=== PATIENT | female | born 1950 | race Caucasian/White ===

== ENCOUNTER 2017-05-14 07:26 | Day surgery (SDC) | payer MEDICARE, OTHER ==
[~2017-05-14] VITALS: Ht 162.6 cm; Wt 67.9 kg
[2017-05-14] MEDS: Lactated Ringer's 1,000 ML IV SCH ×2 (05:38→09:05)
[~2017-05-14 07:26] MED LIST: CHOL200025 PO; CeFAZolin Inj 2 GM in IV Premix 1 EACH IV ONE; FOLI1TAB50 PO; RES15 PO; ZINC50TA56 PO; [UNRECOGNIZED DRUG - CODE] IM; calcium
[2017-05-14] MEDS ORDERED: Propofol 10,000 mCg/mL 20 mL Inj ONE (07:27)
[2017-05-14] MEDS ORDERED: Ketamine 10 mg/mL 20 mL Inj ONE (07:27)
[2017-05-14] MEDS ORDERED: Ondansetron 2 mg/mL 2 mL Inj ONE (07:27)
[2017-05-14] MEDS ORDERED: Lactated Ringer's 500 ML IV PRN (07:36)
[2017-05-14] MEDS ORDERED: Lactated Ringer's 1,000 ML IV SCH (07:36)
--- NOTE | 2017-05-14 07:36 | PCM.HPANE ---
Patient Data Surgeon Admitting Provider: Attending Provider:Timothy Peralta MD Primary Care Physician:Rosa M Herrera MD Other Provider:Bina Moyaingham Anesthesia Reason for Visit Left Breast Dcis Ht/WT & BMI Body Mass Index Allergies Coded Allergies: oxycodone HCl (Verified Adverse Reaction, Severe, ANXIETY, 05/02/17) ANTSY COULDNT SIT STILL, NAUSEA Past Anesthesia History Anesthesia History: Denies:: Abnormal Airway, Anesthesia Reactions, Difficult Intubation, Fam Anesthesia Reaction, Malignant Hyperthermia Diabetes History Hx Diabetes?: No MRSA MRSA: No Medications Hypertension Medication: No Home Meds Incl Beta Fidel: No Reported Medications Zinc Amino Acid Chelate (Zinc)50 Mg [id number] Mg PO 05/10/17 Mv,Ca,Min/Iron Fum/FA/Vit K (Multi For Her Tablet)1 Each Tablet1 Each PO DAILY 05/10/17 Temazepam 15 Mg [id number] Mg PO HS PRN For Insomnia 30 Days Ref 0 05/10/17 Cholecalciferol (Vitamin D3) (Vitamin D3)2,000 Unit Tablet2,000 Unit PO DAILY 05/10/17 [calcium] No Conflict [id number] Mg DAILY 05/10/17 Botulinum Toxin Type A (Botox)100 Unit Vial70 Unit IM q3mos cervical dystonia injection scheduled 05/13/17 05/10/17 Discontinued Reported Medications Botulinum Toxin Type A (Botox)100 Unit Vial70 Unit IM Q 3 MONTHS FOR CERVICAL DYSTONIA 05/02/17 Cholecalciferol-Expunged Drug, Do Not Renew! (Vitamin D3-Expunged Drug, Do Not Renew!)10,000 Unit Capsule2,000 Unit PO DAILY 04/21/13 Calc/D3/Mag/Zn/Nutritional Services Cook/Shahid/Macon (Calcium 600/Vit D3-Expunged, Do Not Renew!)1 Each Tablet2 Each PO DAILY PLUS IN MUTI VITAMIN TOTAL 1500 D 04/21/13 MULTIVITAMIN-Expunged Drug, Do Not Renew! (MULTI VITAMIN -Expunged Drug, Do Not Renew!)1 Each Tablet1 Each PO DAILY 04/21/13 Levothyroxine-Expunged Drug, Do Not Renew! (Synthroid-Expunged Drug, Do Not Renew!)25 Mcg Tablet0.025 Mg PO DAILYAC #30 TAB 0.025 MG = 25 MCG 04/12/13 History History of ENT Problems?: No HEENT History: Denies:: Abnormal Airway Cataracts Difficult Intubation Dysphagia Glaucoma Hearing Problem Sinus Problem TMJ (possible ? no nightguard ) Denture Type: None Teeth Condition: Within Normal Limits Hx of Heart Problems?: No Cardiovascular History: Denies:: AICD Abdominal Aortic Aneurism Atrial Fibrillation Cardiac Surgery Chest Pain Congestive Heart Failure Heart Murmur Hypertension Irregular Heartbeat Pacemaker Peripheral Vascular Rheumatic Fever Thrombophlebitis Hx of Respiratory Problem?: Yes Respiratory History: Positive for:: Tuberculosis (poss 38 yrs ago, treated for 6 mos) Denies:: Asthma COPD Dyspnea Emphysema Hemoptysis Oxygen Administration Pneumonia Use of C-PAP Machine Use of Inhalers / NEBS Hx Neurologic Problems?: Yes Neurological History: Denies:: Alzheimer's Disease CVA Dementia Dizziness Headaches Multiple Sclerosis Parkinson's Disease (cervical dystonia- receives botox- inj scheduled 05/13/17) Peripheral Neuropathy Seizures TIA Hx of GI Problems?: No Hx of Problems?: No Genitourinary History: Denies:: HX of Hemodialysis Kidney Stones Urinary Tract Infection Female Hx: Denies:: Currently (post menopausal) Endometriosis Pelvic Inflammatory Skin History: Denies:: History Skin Disorders? Pressure Ulcers Hx Musculoskeletal Problems?: Yes Musculoskeletal History: Positive for:: Back Injury (L2-3 lami 2016) Denies:: Fibromyalgia Joint Replacement Musculoskeletal Trauma Myasthenia Gravis Systemic Lupus Hx of Psycho/Social Problems?: No Psycho Social History: Denies:: Anxiety Bipolar Disorder Hx Depression Hx Surgeries?: Yes (L2-3 lami) Hx Any Other Health Problems?: Yes Other History: Positive for:: Cancer (breast ) Thyroid Disease (on meds) Denies:: Endocrine Disease History Blood Transfusions: Positive for:: Accept Blood Products? Denies:: Blood Transfuse Reaction Blood Transfusions Hx Diabetes: No Hx Alcohol Use: YesAlcoholic Drinks Per Day: one drink every few monthsHx Substance Use: No Smoking Status: Former Smoker Have You Smoked inLast 12 mo: No Stop/Bang Treated for Sleep Apnea?: No Do You Have a CPAP Machine?: No Risk Assessment Category Category 1A: Patient has history of documented sleep apnea, and HAS NOT received any narcotic, sedative or anesthesia administration during this stay. Category 1B: Patient has history of documented sleep apnea, and HAS received any narcotic , sedative or anesthesia administration during this stay Category 2: Patient has SUSPECTED Obstructive Sleep Apnea, and HAS received any narcotic , sedative or anesthesia administration during this stay. Category 3: Patient has SUSPECTED Obstructive Sleep Apnea and HAS NOT received narcotic, sedative or anesthesia administration during this stay. Category 4: Outpatient in Procedural Areas with known sleep apnea or who screen positive for High Risk via the STOP/BANG questionnaire. Exam Exam General Appearance: Alert, Oriented X3, Cooperative, No Acute Distress HEENT/AIRWAY: MP 2 Lungs: Clear to Auscultation, Normal Air Movement Heart: Exam Unremarkable, Regular Rate/Rhythm, No Murmurs/Rubs/Gallops Meds/Labs/Diagnostics Admission Meds Current Medications Lactated Ringer's (Lr) 1,000 ml @ 120 mls/hr Q8H20M IV Last administered on t 05:38; Start 05/14/17 at 05:00; Stop 05/14/17 at 13:19 Plan Impression Patient chart reviewed, patient interviewed and anesthestic plan with risks, benefits, and alternatives discussed, and informed consent obtained. NPO per Anesth. Guidelines: Yes ASA Physical Status: ASA2 Mod Systemic Disease Anesthetic Plan: MAC Bene/Risks/Altern/Consents: Yes HP Complete Prior to Induction: Yes Nabil Minor MD May 14, 2017 07:36
[2017-05-14] MEDS ORDERED: fentaNYL-PF 50 mCg/mL 2 mL Inj IVPUSH PRN (07:40)
[2017-05-14] MEDS ORDERED: Dexamethasone 4 mg/mL Inj IVPUSH PRN (07:40)
[2017-05-14] MEDS ORDERED: EPHEDrine Sulfate 50 mg/mL Inj IVPUSH PRN (07:40)
[2017-05-14] MEDS ORDERED: MetoCLOpramide 5 mg/mL 2 mL Inj IVPUSH PRN (07:40)
[2017-05-14] MEDS ORDERED: Ondansetron 2 mg/mL 2 mL Inj IVPUSH PRN (07:40)
[2017-05-14] MEDS ORDERED: Phenylephrine 10,000 mCg/mL Inj IVPUSH PRN (07:40)
[2017-05-14 07:55] VITALS: BP 128/80; PULSE 86; RESP 18; O2SAT 98
[2017-05-14] MEDS ORDERED: Bupivacaine 0.5% 50 mL Inj INFILTRATE ONE (09:25)
[2017-05-14] MEDS ORDERED: HepLOK Flush 100 unit/mL 5 mL Inj IVFLUSH ONE (09:30)
[2017-05-14] MEDS ORDERED: HYDROcodone-APAP 5-325 mg Tablet PO PRN (09:45)
--- NOTE | 2017-05-14 09:47 | PCM.DISURG ---
Surgical Discharge Instruction Date of Service May 14, 2017 Dates of Hospitalization Date of Hospital Admission Providers Admitting Physician: Primary Care Physician: Rosa M Herrera MD Attending Physician: Timothy Peralta MD Discharge Diagnosis Discharge Diagnosis Left breast cancer Diet Discharge Diet: No restrictions Activity Discharge Activity-General: No restrictions, Activity as pain allows Dressing and Incisional Care Dressing Care: Allow Steri Stripes to fall off, Remove outer dressing after 24 hrs Hygiene: May shower after (24 hours) Follow Up Plan Follow Up Plan With Dr. Bobo as directed Call your provider for: Fever (over 101.5), Discharge @ incision, pus discharge Timothy Peralta MD May 14, 2017 09:47
--- NOTE | 2017-05-14 09:49 | PCM.SURGOP ---
Surgical Operative Report Date of Service: May 14, 2017 Pre Operative Diagnosis Left breast cancer Post Operative Diagnosis Same Procedure: Tunneled left subclavian central venous catheter with power port, intraoperative fluoroscopy with interpretation Surgeon and [employer] Service Technician: Surgeon: Timothy Peralta MD Assistants: None Indication for Procedure 66-year-old woman who has been diagnosed with clinical T2, N1 left breast cancer , ER/SD positive, HER-2 positive. Plans have been made to treat her with neoadjuvant chemotherapy. After discussion of risks and benefits, she agreed to proceed with Port-A-Cath placement. Findings: The catheter tip was positioned at the cavoatrial junction. Procedure Details After smooth induction of monitored anesthesia care, the patient was positioned in the supine position with both arms tucked. The patient was prepped and draped in wide sterile fashion. A procedural pause was performed according to the SCOAP checklist, and all were found to be in agreement. The patient was placed in Trendelenburg position. The left subclavian vein was accessed with a finder needle in a single pass, and the 0.035 inch wire was passed into the vena cava. It was confirmed with fluoroscopy. A subcutaneous pocket was created on the left upper chest wall using electrocautery. The port reservoir was secured to the fascia with interrupted 3-0 Vicryl sutures. The catheter was connected to the tunneler, and tunneled under the subcutaneous tissue to the venipuncture site. The introducer sheath and dilator was passed over the wire under fluoroscopic guidance. The catheter was then passed through the tear-away sheath into the vena cava. The sheath was removed. The catheter was then pulled back under fluoroscopic guidance until the tip was positioned at the cavoatrial junction. The catheter was cut to size, and connected to the port reservoir. The port was accessed using a Hendrickson needle, which aspirated and flushed easily. The port was then flushed with the final heparin flush, consisting of 100 units per mL, a total of 4 mL. A final fluoroscopic image confirmed that the port was in good position with no kinks, and there was no evidence of pneumothorax. The incision was closed with a running 4-0 Monocryl subcuticular stitch. Steri-Strips and sterile dressings were applied. At the end of the case all needle and sponge counts were correct 2. The patient was awakened from anesthesia without difficulty, and taken to the recovery room in satisfactory condition, having tolerated the procedure well. Complications There were no periprocedural complications identified. Surgical Specimen Removed: No Specimen sent to Pathology: Not applicable Anesthetic Plan: MAC Grafts, Implants: Implants-See Implant Record Output, Estimated Blood Loss: 5 Blood Administration during gaston: No Drains: None Catheters: None copies to: Rosa M Herrera MD; John Bobo MD, Joshua D MD May 14, 2017 09:49
[2017-05-14 09:50] VITALS: BP 128/86; PULSE 84; RESP 18; O2SAT 97
[2017-05-14 10:18] VITALS: BP 138/88; PULSE 77; RESP 18; O2SAT 98
--- NOTE | 2017-05-14 10:27 | PCM.ANEP1 ---
Post Anesthesia PACU Phase 1 Assessment Vital Signs Vital Signs Date Time Temp Pulse Resp B/P Pulse Ox O2 Delivery O2 Flow Rate FiO2 05/14/17 10:18 36.1 77 18 138/88 98 Room Air 05/14/17 09:50 36.1 84 18 128/86 97 Room Air 05/14/17 07:55 36.5 86 18 128/80 98 Room Air Anesthetic Administered: MAC Level of Alertness: Awake, talking HOOPER's with Equal Strength: Yes Pain: No Nausea or Vomiting: No CV Function & Hydration Stable: Yes Airway Device: none Oxygen Delivery: Nasal Cannula Lungs: Clear to Auscultation, Normal Air Movement Dermatome Level: Full Sensation PACU Phase 2 Assessment Complications: No Follow up Care: No Patient Instructions Provided: N/A Nabil Minor MD May 14, 2017 10:27
== END 2017-05-14 23:59 | disposition home or self-care (01) ==
LOC: SAS 07:26
PROVIDERS: ATTEND Student in an Organized Health Care Education/Training Program
DX: D05.12 Intraductal carcinoma in situ of left breast (principal); G25.0 Essential tremor; G24.8 Other dystonia; F41.9 Anxiety disorder, unspecified; E03.9 Hypothyroidism, unspecified; M21.372 Foot drop, left foot; Z87.891 Personal history of nicotine dependence; Z17.0 Estrogen receptor positive status [ER+]
CPT/HCPCS: 36561; 77001; C1788; J0690; J1642; J2250; J2405; J7120